=== PATIENT | female | born 2000 | race Caucasian/White ===

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

== ENCOUNTER 2018-05-07 16:42 | Emergency (ER) | payer OTHER ==
[~2018-05-07] VITALS: Ht 162.6 cm; Wt 56.8 kg
[~2018-05-07 16:42] MED LIST: CIPRO500 MG PO; FLAGYL500 MG PO
[2018-05-07 16:57] VITALS: Ht 162.6 cm; Wt 56.8 kg
[2018-05-07] MEDS ORDERED: CLEOCIN HCL300 MG PO (17:46)
[2018-05-07 17:53] VITALS: BP 135/75
== END 2018-05-07 17:54 | disposition home or self-care (01) ==
LOC: D.ER 16:42
DX: L02.511 Cutaneous abscess of right hand (principal)

== ENCOUNTER 2019-11-22 23:07 | Emergency (ER) | payer OTHER ==
[~2019-11-22] VITALS: Ht 162.6 cm; Wt 70.0 kg
[~2019-11-22 23:07] MED LIST changes: +CLEOCIN HCL300 MG PO
[2019-11-22 23:14] VITALS: BP 125/71; Ht 162.6 cm; Wt 70.0 kg
[2019-11-22 23:32] LABS: HEMATOCRIT 40.1 % (36.0-48.0); HEMOGLOBIN 13.2 g/dL (12-16); LYMPHOCYTES 40.8 % (15-50); MCH 28.8 pg (26.0-34.0); MCHC 32.9 g/dL (31.0-37.0); MCV 87.6 fL (80.0-100.0); MEAN PLATELET VOLUME 8.7 fL (7.4-10.4); PLATELET COUNT 376 10x3/uL (130-400); RBC 4.58 10x6/uL (4.00-5.40); RDW 14.4 % (11.5-14.5); WBC 8.3 10x3/uL (4.8-10.8)
[2019-11-22 23:42] LABS: CALC OSMOLALITY 276 mosm/kg (275-300); CALCIUM 8.5 mg/dL (8.5-10.1); CARBON DIOXIDE 26.1 mmol/L (21.0-32.0); CHLORIDE - SERUM 102 mmol/L (98-107); CREATININE - SERUM 0.9 mg/dL (0.6-1.3); GLUCOSE 90 mg/dL (74-106); POTASSIUM - SERUM 3.6 mmol/L (3.5-5.1); SODIUM 137 mmol/L (136-145); UREA NITROGEN 20 mg/dL (7-18); eGFR NON AFRICAN AMERICAN 84 mL/min (90-120)
[2019-11-22 23:47] LABS: BILIRUBIN NEGATIVE (NEGATIVE); GLUCOSE NEGATIVE (NEGATIVE); KETONE NEGATIVE (NEGATIVE); NITRITE NEGATIVE (NEGATIVE); UROBILINOGEN NORMAL (NORMAL)
[2019-11-22 23:51] LABS: ALBUMIN 3.8 g/dL (3.4-5.0); ALKALINE PHOSPHATASE 86 U/L (30-120); ALT (SGPT) 191 U/L (10-68); AMYLASE - SERUM 41 U/L (25-115); LIPASE 168 U/L (73-393); PROTEIN - SERUM 7.8 g/dL (6.4-8.2); TROPONIN-I < 0.017 ng/mL (0.000-0.060)
[2019-11-22 23:51] LABS: HCG URINE NEGATIVE (NEGATIVE)
[2019-11-23] MEDS ORDERED: MIRALAX17 GM PO (00:21)
== END 2019-11-23 01:22 | disposition home or self-care (01) ==
LOC: D.ER 23:07
PROVIDERS: Emergency Medicine
DX: K64.8 Other hemorrhoids (principal); K60.2 Anal fissure, unspecified; K92.1 Melena